=== PATIENT | male | born 1955 | race Caucasian/White ===

== ENCOUNTER 2019-03-20 09:49 | Outpatient (CLI) | payer OTHER ==
[~2019-03-20] VITALS: Ht 170.2 cm; Wt 79.4 kg
[2019-03-20 10:45] VITALS: BP 100/68
[2019-03-20] MEDS ORDERED: no medication (10:45)
--- NOTE | 2019-03-20 16:30 | Consultation ---
DATE OF CONSULTATION: 03/20/2019 CHIEF COMPLAINT: Referral for screening colonoscopy, history of colonic polyps. HISTORY OF PRESENT ILLNESS: The patient is a 63-year-old male with extensive family history of colon cancer. Father at age 67, brother at 36. He himself had history of colonic polyps in the past, last colonoscopy 5 years ago was referred to us for repeat colonoscopy. PAST MEDICAL HISTORY: 1. Questionable hepatitis C. 2. Depression. 3. PTSD. 4. Seizure disorder. 5. History of colonic polyps. PAST SURGICAL HISTORY: Back surgery. MEDICATIONS: Please see medication reconciliation list. ALLERGIES: No known drug allergies. FAMILY HISTORY: Father colon cancer at age 67, brother at age 36. SOCIAL HISTORY: The patient denies any alcohol. He is a former smoker. Denies any IV drug abuse. REVIEW OF SYSTEMS: Positive for mild constipation. PHYSICAL EXAMINATION: VITAL SIGNS: Temperature is 97.6, pulse 70, respirations 20, and blood pressure 100/68. HEENT: Normocephalic and atraumatic. Sclerae anicteric. NECK: Supple. No evidence of obvious lymphadenopathy. CARDIOVASCULAR: Regular rate and rhythm. Plus S1 and S2. No obvious murmur. LUNGS: Clear to auscultation bilaterally. ABDOMEN: Positive bowel sounds. Soft and nontender. No rebound. No guarding. No peritoneal sign. EXTREMITIES: No cyanosis. No clubbing. No edema ASSESSMENT AND PLAN: The patient is a 63-year-old male with extensive family history of colon cancer, history of colonic polyps needs repeat colonoscopy. The patient was informed risks and benefits of the procedure. Prep was given to him. We want to schedule him when the authorization is available. Varinder Edwards M.D. DR: Marcellus JOB#: [id number] CC:
== END 2019-03-20 13:53 | disposition home or self-care (01) ==
LOC: PAN 09:49
DX: K63.5 Polyp of colon (principal); Z86.010 Personal history of colon polyps; Z80.0 Family history of malignant neoplasm of digestive organs; G40.909 Epilepsy, unspecified, not intractable, without status epilepticus; F32.9 Major depressive disorder, single episode, unspecified; K59.00 Constipation, unspecified
CPT/HCPCS: 99202

== ENCOUNTER 2019-06-06 12:55 | Outpatient (CLI) | payer MEDICAID ==
[~2019-06-06 12:55] MED LIST: no medication
--- NOTE | 2019-06-06 13:42 | General Progress Note ---
Assessment/Plan Problem List: (1) Colon polyps ICD Codes: K63.5 - Polyp of colon SNOMED: 85901030 (2) Constipation ICD Codes: K59.00 - Constipation, unspecified SNOMED: 70831748 Assessment/Plan: repeat colon in 5 years trial of linzess Subjective ROS Limited/Unobtainable: Yes Allergies: Coded Allergies: No Known Allergies (Unverified , 03/20/19) Objective General Appearance: alert EENT: normal ENT inspection Neck: supple Cardiovascular: normal rate Respiratory/Chest: decreased breath sounds Abdomen: normal bowel sounds, non tender, soft Extremities: non-tender Varinder Edwards MD Jun 06, 2019 13:42
[2019-06-06 15:50] VITALS: BP 93/58
== END 2019-06-06 14:55 | disposition home or self-care (01) ==
LOC: PAN 12:55
DX: K63.5 Polyp of colon (principal); K59.00 Constipation, unspecified
CPT/HCPCS: 99212